=== PATIENT | female | born 1990 | race American Indian/Alaskan Native ===

== ENCOUNTER 2018-03-15 18:46 | Emergency (ER) | payer BC ==
[2018-03-15 19:15] VITALS: BP 135/91
[2018-03-15] MEDS ORDERED: MOTRIN PO ONE ×2 (19:22→19:29)
[2018-03-15] MEDS ORDERED: PERCOCET 5/325 PO ONE (22:06)
[2018-03-15] MEDS ORDERED: ROCEPHIN IM ONE ×2 (22:13→22:15)
[2018-03-15] MEDS ORDERED: XYLOCAINE 1% MPF 5 mL INFILTRATI ONE (22:15)
--- NOTE | 2018-03-15 22:15 | Emergency Department Report ---
ED ENT HPI - General Chief complaint: Dental/Oral Stated complaint: RIGHT SIDE/SWOLLEN Time Seen by Provider: 03/15/18 22:06 Source: patient Mode of arrival: Ambulatory Limitations: No Limitations - History of Present Illness Initial comments: 27-year-old -[place] female comes in complaining of right-sided tooth pain and swelling 10 out of 10. Patient is currently on amoxicillin and Tylenol 3 and ibuprofen 800 mg. She is been treated for the last 2 days. She reports that the pain is unbearable. Her last dose at about 6 PM for her ibuprofen. Patient reports that she did see the dentist and he will not be able to extract her third molars until infection is under control. MD complaint: tooth pain -: days(s) (2) Location: tooth # (1,32) Severity scale (0 -10): 10 Quality: aching, sharp, constant Consistency: constant Improves with: none Worsens with: movement Associated Symptoms: fever, gum swelling, toothache - Related Data Allergies Allergy/AdvReac Type Severity Reaction Status Date / Time No Known Allergies Allergy Unverified 03/15/18 19:18 ED Dental HPI - General Chief complaint: Dental/Oral Stated complaint: RIGHT SIDE/SWOLLEN Time Seen by Provider: 03/15/18 22:06 Source: patient Mode of arrival: Ambulatory Limitations: No Limitations - Related Data Allergies Allergy/AdvReac Type Severity Reaction Status Date / Time No Known Allergies Allergy Unverified 03/15/18 19:18 ED Review of Systems ROS: Stated complaint: RIGHT SIDE/SWOLLEN Other details as noted in HPI Constitutional: fever Eyes: denies: eye pain, eye discharge, vision change ENT: dental pain. denies: ear pain, throat pain Respiratory: denies: cough, shortness of breath, wheezing Cardiovascular: denies: chest pain, palpitations Endocrine: no symptoms reported Gastrointestinal: denies: abdominal pain, nausea, diarrhea Genitourinary: denies: urgency, dysuria, discharge Musculoskeletal: denies: back pain, joint swelling, arthralgia Skin: denies: rash, lesions Neurological: denies: headache, weakness, paresthesias Psychiatric: denies: anxiety, depression Hematological/Lymphatic: denies: easy bleeding, easy bruising ED Past Medical Hx - Past Medical History Previous Medical History?: No - Surgical History Past Surgical History?: No - Social History Smoking Status: Never Smoker ED Physical Exam - General Limitations: No Limitations General appearance: alert, in no apparent distress - Head Head exam: Present: atraumatic, normocephalic - Eye Eye exam: Present: PERRL, EOMI - ENT ENT exam: Present: mucous membranes moist - Expanded ENT Exam Expanded Teeth exam: Present: dental tenderness # (1,32), gingival enlargement - Neck Neck exam: Present: full ROM. Absent: lymphadenopathy - Respiratory Respiratory exam: Present: normal lung sounds bilaterally. Absent: respiratory distress - Cardiovascular Cardiovascular Exam: Present: regular rate, normal rhythm. Absent: systolic murmur, diastolic murmur, rubs, gallop - Neurological Exam Neurological exam: Present: alert, oriented X3 - Psychiatric Psychiatric exam: Present: normal affect, normal mood - Skin Skin exam: Present: warm, dry, intact, normal color. Absent: rash ED Course Vital Signs 03/15/18 03/15/18 03/15/18 19:07 19:19 19:29 Temperature 101.8 F H 101.8 F H Pulse Rate 94 H 93 H Respiratory 18 18 20 Rate Blood Pressure 135/91 135/91 O2 Sat by Pulse 100 100 Oximetry ED Medical Decision Making - Medical Decision Making Patient has been evaluated by this provider fast track. Ibuprofen has been given to patient in triage. Percocet given to patient in fast track lidocaine injection to tooth #1 and 32 patient a Rocephin shot of 1 g IM. Patient is to continue with her amoxicillin and Tylenol 3 and ibuprofen as prescribed by her dentist. Critical care attestation.: If time is entered above; I have spent that time in minutes in the direct care of this critically ill patient, excluding procedure time. ED Disposition Clinical Impression: Tooth abscess Disposition: DC-01 TO HOME OR SELFCARE Is pt being admited?: No Does the pt Need Aspirin: No Condition: Stable Instructions: Dental Abscess (ED) Additional Instructions: Continue with antibiotics and pain medication as prescribed by her dentist. Referrals: PRIMARY CARE, [Primary Care Provider] - 3-5 Days Forms: Accompanied Note, Work/School Release Form(ED)
== END 2018-03-15 22:45 | disposition home or self-care (01) ==
LOC: ED 18:46
DX: K04.7 Periapical abscess without sinus (principal)
CPT/HCPCS: 96372; 99282; J0696